=== PATIENT | female | born 1975 | race Caucasian/White ===

== ENCOUNTER 2017-09-25 03:00 | Emergency (ER) | payer OTHER ==
[~2017-09-25 03:00] MED LIST: Z.0.NO CURRENT MEDS
[2017-09-25 03:27] VITALS: BP 99/49; PULSE 77; RESP 16; TEMP 98; O2SAT 97
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
[2017-09-25] MEDS ORDERED: KETOROLAC TROMETHAMINE 60 MG/2 ML (IM) VIAL IM ONE (04:15)
[2017-09-25 07:51] VITALS: BP 101/69; PULSE 68; RESP 18; O2SAT 97
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
[2017-09-25] MEDS ORDERED: IBUPROFEN 600 MG TAB PO ONE (10:15)
== END 2017-09-25 10:35 | disposition home or self-care (01) ==
LOC: NEPD 03:00
DX: F10.920 Alcohol use, unspecified with intoxication, uncomplicated (principal); S20.211A Contusion of right front wall of thorax, initial encounter; F17.200 Nicotine dependence, unspecified, uncomplicated; Y09 Assault by unspecified means
CPT/HCPCS: 96372; 99284; J1885